=== PATIENT | female | born 1990 | race African-American/Black ===

== ENCOUNTER 2018-06-16 16:05 | Emergency (ER) | payer OTHER ==
[~2018-06-16] VITALS: Ht 177.8 cm; Wt 134.3 kg
--- NOTE | 2018-06-16 16:27 | Emergency Room Report ---
History of Present Illness General Chief Complaint: General Complaint Source: Patient Present Illness HPI 28-year-old female patient presents the ER complaining of hemorrhoids and anal fissure. Reports hemorrhoids have been present for "several years", states that she believes the hemorrhoid developed into a fissure. Reports pain with sitting. Reports bleeding from site of injury. Denies history of surgery to remove hemorrhoids. Reports has been using topical creams with mild relief of symptoms. Denies syncope or dizziness. Reports intermittent pain with urination, denies vaginal discharge. Denies blood in urine. Reports pain with defecation. Denies fever, chest pain, shortness of breath, abdominal pain. Reports anal fissure pain radiates to her back and legs when she is straining to defecate. Denies acute injury or trauma. Denies bowel or bladder incontinence. Reports back pain has been present for "a while". Reports worsens when straining on toilet. Allergies: Coded Allergies: No Known Allergies (Unverified , 06/16/18) Patient History Past Medical History: see triage record Last Menstrual Period: 06/04/18 Reviewed Nursing Documentation: PMH: Agreed; PSxH: Agreed Nursing Documentation-PMH Past Medical History: No Stated History Review of Systems All Other Systems: negative except mentioned in HPI Physical Exam Vital Signs Date Time Temp Pulse Resp B/P (MAP) Pulse Ox O2 Delivery O2 Flow Rate FiO2 06/16/18 16:09 98.1 83 18 134/93 96 Room Air Sp02 EP Interpretation: reviewed, normal General Appearance: well appearing, no apparent distress, alert, GCS 15, non- toxic Head: normocephalic, atraumatic Eyes: bilateral eye normal inspection, bilateral eye PERRL ENT: hearing grossly normal, normal pharynx, no angioedema, normal voice, uvula midline, moist mucus membranes Neck: full range of motion Respiratory: lungs clear, normal breath sounds, no rhonchi, no respiratory distress, no accessory muscle use, no wheezing, speaking full sentences Cardiovascular #1: regular rate, rhythm, no edema Gastrointestinal: non tender, soft, no mass, non-distended, no guarding, no rebound Rectal: hemorrhoids - Tender, palpable, no blue red discoloration, no fissure, no prolapse Genitourinary: no CVA tenderness Musculoskeletal: back normal, digits/nails normal, gait/station normal, normal range of motion, non-tender Neurologic: alert, oriented x3, responsive, motor strength/tone normal, sensory intact Psychiatric: mood/affect normal Skin: no rash Lymphatic: no adenopathy Medical Decision Making PA Attestation Dr. Donahue is my supervising Physician whom patient management has been discussed with. Diagnostic Impression: Primary Impression: External hemorrhoid Additional Impressions: Anemia Back pain ER Course Pt. presents to the ED c/o chronic hemorrhoids and back pain. Ddx considered but are not limited to constipation, anal tag, anal fissure, hemorrhoids, sprain strain, anemia, muscle spasm. No bowel or bladder incontinence, no recent injury or trauma, low suspicion for cauda equina, low suspicion for fracture, does not require imaging at this time. Vital signs: are WNL, pt. is afebrile ER COURSE: physical exam shows hemorrhoid, tender to palpation, no bluish discoloration, no erythema, no suspicion for acute thrombosed hemorrhoid. Consult with general surgeon who advised against excising hemorrhoid. Advised to follow-up outpatient with general surgeon. Provided with contact information for general surgeon. No fissure noted. Provide with IV fluids and pain medication. CBC shows mild anemia, does not require blood transfusion, no elevation WBCs CMP shows no elevation in LFTs UA unremarkable, no signs of infection, does not require antibiotics, low suspicion for UTI Urine negative Coag studies unremarkable Applied gauze to affected area, advised patient on sitz baths. Wash area thoroughly following bowel movements. followup with primary care and discuss referral to GI and surgery as needed. Provide Colace for constipation. Instructed patient to drink plenty of fluids. provided with pain medication in the ER, will monitor patient, patient did not drive to ER, OK for discharge to home. Advised patient against straining with defecation, may be causing sciatica-like pain symptoms straining to defecate. No acute injury or trauma, low suspicion for fracture, does not require imaging at this time. Denies bowel or bladder incontinence, low suspicion for cauda equina. Likely muscular pain causing pain symptoms. Advised on rest ice and heat. Provide patient with Robaxin. Follow-up with primary care provider discussed referral to Ortho specialist, discussed referral to PT pain management as needed. Discussed need for MRI imaging. ER precautions given. Patient reports pain symptoms improve prior to leaving the ER. DISCHARGE: Rx provided for Colace Rx provided for Motrin Rx provided for Annusol Rx provided for Lidocaine Rx provided for robaxin At this time pt is stable for d/c to home. Patient is resting comfortably, in no acute distress, nontoxic appearing, talking without difficulty. Patient to take medications as instructed Will provide with patient care instructions and any necessary prescriptions. Care plan and follow-up instructions provided. Patient instructed to follow-up with primary care provider in 3 - 5 days. Patient questions asked and answered. Patient reports understanding and agreement to treatment plan. ER precautions given. Patient instructed to return to ER immediately for any new or worsening of symptoms including but not limited to increasing SOB, persistent fever. - Please note that this Emergency Department Report was dictated using [employer] support agent technology software, occasionally this can lead to erroneous entry secondary to interpretation by the dictation equipment. Labs Test 06/16/18 17:00 White Blood Count 7.1 K/UL (4.8-10.8) Red Blood Count 4.45 M/UL (4.20-5.40) Hemoglobin 11.3 G/DL (12.0-16.0) Hematocrit 36.6 % (37.0-47.0) Mean Corpuscular Volume 82 FL (80-99) Mean Corpuscular Hemoglobin 25.5 PG (27.0-31.0) Mean Corpuscular Hemoglobin Concent 31.0 G/DL (32.0-36.0) Red Cell Distribution Width 14.4 % (11.6-14.8) Platelet Count 402 K/UL (150-450) Mean Platelet Volume 6.9 FL (6.5-10.1) Neutrophils (%) (Auto) 55.0 % (45.0-75.0) Lymphocytes (%) (Auto) 35.3 % (20.0-45.0) Monocytes (%) (Auto) 6.9 % (1.0-10.0) Eosinophils (%) (Auto) 1.1 % (0.0-3.0) Basophils (%) (Auto) 1.6 % (0.0-2.0) Prothrombin Time 11.3 SEC (9.30-11.50) Prothromb Time International Ratio 1.1 (0.9-1.1) Activated Partial Thromboplast Time 32 SEC (23-33) Urine Color Yellow Urine Appearance Clear Urine pH 5 (4.5-8.0) Urine Specific [place] 1.020 (1.005-1.035) Urine Protein Negative (NEGATIVE) Urine Glucose (UA) Negative (NEGATIVE) Urine Ketones Negative (NEGATIVE) Urine Blood 1+ (NEGATIVE) Urine Nitrite Negative (NEGATIVE) Urine Bilirubin Negative (NEGATIVE) Urine Urobilinogen Normal MG/DL (0.0-1.0) Urine Leukocyte Esterase Negative (NEGATIVE) Urine RBC 0-2 /HPF (0 - 2) Urine WBC 0-2 /HPF (0 - 2) Urine Squamous Epithelial Cells Few /LPF (NONE/OCC) Urine Bacteria Few /HPF (NONE) Urine Mucus Moderate /LPF (NONE/OCC) Urine HCG, Qualitative Negative (NEGATIVE) Sodium Level 137 MMOL/L (136-145) Potassium Level 3.9 MMOL/L (3.5-5.1) Chloride Level 101 MMOL/L (98-107) Carbon Dioxide Level 27 MMOL/L (21-32) Anion Gap 9 mmol/L (5-15) Blood Urea Nitrogen 6 mg/dL (7-18) Creatinine 0.8 MG/DL (0.55-1.30) Estimat Glomerular Filtration Rate > 60 mL/min (>60) Glucose Level 96 MG/DL (74-106) Calcium Level 9.8 MG/DL (8.5-10.1) Total Bilirubin 0.3 MG/DL (0.2-1.0) Aspartate Amino Transf (AST/SGOT) 13 U/L (15-37) Alanine Aminotransferase (ALT/SGPT) 23 U/L (12-78) Alkaline Phosphatase 69 U/L (46-116) Total Protein 8.8 G/DL (6.4-8.2) Albumin 3.9 G/DL (3.4-5.0) Globulin 4.9 g/dL Albumin/Globulin Ratio 0.8 (1.0-2.7) Lipase 122 U/L (73-393) Last Vital Signs Date Time Temp Pulse Resp B/P (MAP) Pulse Ox O2 Delivery O2 Flow Rate FiO2 06/16/18 16:09 98.1 83 18 134/93 96 Room Air Status: improved Disposition: HOME, SELF-CARE Condition: Stable Scripts Ibuprofen* (MOTRIN*) 600 Mg Tablet 600 MG ORAL Q8H PRN for For Pain, #30 TAB 0 Refills Prov: Laz Garcia 06/16/18 Lidocaine (Lidocaine) 15 Gm Cream..g. 15 GM TP BID, #15 GM Prov: Laz Garcia 06/16/18 Docusate Sodium* (COLACE*) 100 Mg Capsule 100 MG ORAL THREE TIMES A DAY, #21 CAP Prov: Laz Garcia 06/16/18 Hydrocortisone Acetate* (ANUSOL-HC*) 25 Mg Supp.rect 1 SUPP RECTAL TWICE A DAY, #14 SUPP Prov: Laz Garcia 06/16/18 Methocarbamol* (ROBAXIN*) 500 Mg Tablet 500 MG PO TID, #21 TAB 0 Refills Prov: Laz Garcia 06/16/18 Patient Instructions: Anemia, Nonspecific, Back Pain, Adult, [id number], Hemorrhoids, [id number] Additional Instructions: Followup with primary care provider in 3 -5 days. Discuss referral to general surgeon for hemorrhoid. Do not strain with bowel movements. Drink plenty of fluids. High-fiber diet. Advised on rest, ice, heat. Follow-up with primary care provider discussed referral to physical therapy and pain management as needed. Discussed MRI imaging at that time. Take medications as directed. Patient questions asked and answered. ER precautions given, patient instructed to return to ER immediately for any new or worsening of symptoms. Laz Garcia Jun 16, 2018 16:27
[2018-06-16] MEDS ORDERED: Isovue-300 100ml vial INJ PRN (16:30)
[2018-06-16] MEDS: Acetaminophen 500mg (ES) tab ORAL ONE ×2 (16:56→16:58)
[2018-06-16 17:09] LABS: BASOPHILS % (AUTO) 1.6 % (0.0-2.0); EOSINOPHILS % (AUTO) 1.1 % (0.0-3.0); HEMATOCRIT 36.6 % (37.0-47.0); HEMOGLOBIN 11.3 G/DL (12.0-16.0); LYMPHOCYTES % (AUTO) 35.3 % (20.0-45.0); MEAN CORPUSCULAR VOLUME 82 FL (80-99); MONOCYTES % (AUTO) 6.9 % (1.0-10.0); PLATELET COUNT 402 K/UL (150-450); RED BLOOD COUNT 4.45 M/UL (4.20-5.40); RED CELL DISTRIBUTION WIDTH 14.4 % (11.6-14.8); WHITE BLOOD COUNT 7.1 K/UL (4.8-10.8)
[2018-06-16 17:10] VITALS: BP 134/93
[2018-06-16 17:23] LABS: ANION GAP 9 mmol/L (5-15); BLOOD UREA NITROGEN 6 mg/dL (7-18); CALCIUM 9.8 MG/DL (8.5-10.1); CARBON DIOXIDE 27 MMOL/L (21-32); CHLORIDE 101 MMOL/L (98-107); CREATININE 0.8 MG/DL (0.55-1.30); POTASSIUM 3.9 MMOL/L (3.5-5.1); SODIUM 137 MMOL/L (136-145)
[2018-06-16 17:26] LABS: APPEARANCE,URINE CLEAR; BILIRUBIN, URINE NEGATIVE (NEGATIVE); COLOR,URINE YELLOW; GLUCOSE, URINE (UA) NEGATIVE (NEGATIVE); KETONES,URINE NEGATIVE (NEGATIVE); LEUKOCYTE ESTERASE ,URINE NEGATIVE (NEGATIVE); NITRITE,URINE NEGATIVE (NEGATIVE); PH,URINE 5 (4.5-8.0); PROTEIN,URINE NEGATIVE (NEGATIVE); UROBILINOGEN,URINE NORMAL MG/DL (0.0-1.0)
[2018-06-16 17:27] LABS: ALANINE AMINOTRANSFERASE 23 U/L (12-78); ALBUMIN 3.9 G/DL (3.4-5.0); ALBUMIN/GLOBULIN RATIO 0.8 (1.0-2.7); ALKALINE PHOSPHATASE 69 U/L (46-116); ASPARTATE AMINO TRANSFERASE 13 U/L (15-37); BILIRUBIN,TOTAL 0.3 MG/DL (0.2-1.0)
[2018-06-16 17:28] LABS: INR 1.1 (0.9-1.1)
[2018-06-16] MEDS ORDERED: Ketorolac 30mg Inj IV ONE (17:30)
[2018-06-16] MEDS ORDERED: LIDOCAINE15 GM TP (18:05)
[2018-06-16] MEDS ORDERED: IBUPROFEN600 MG ORAL (18:05)
[2018-06-16] MEDS ORDERED: ROBAXIN500 MG PO (18:05)
[2018-06-16] MEDS ORDERED: COLACE100 MG ORAL (18:05)
[2018-06-16] MEDS ORDERED: ANUSOL-HC25 MG RECTAL (18:05)
[2018-06-16 18:45] VITALS: BP 128/79
== END 2018-06-16 18:48 | disposition home or self-care (01) ==
LOC: EMR 16:28
DX: K64.9 Unspecified hemorrhoids (principal); D64.9 Anemia, unspecified; G89.29 Other chronic pain; M54.9 Dorsalgia, unspecified; R39.198 Other difficulties with micturition
CPT/HCPCS: 36415; 80053; 81003; 81025; 83690; 85025; 85610; 85730; 96361; 96374; 99284; J1885